=== PATIENT | male | born 1975 | race Caucasian/White ===

== ENCOUNTER 2018-10-11 15:25 | Emergency (ER) | payer OTHER ==
[~2018-10-11] VITALS: Wt 112.1 kg
--- NOTE | 2018-10-11 20:25 | ERD ---
ER Documentation Chief Complaint Chief Complaint hit on head by beanbag: lump noted. no lac. no KO. HPI This is a 43-year-old male who presents emergency department with complaints of head injury. Patient stated this happened around 12 noon at work when a 6 inch and 8 foot metal fell to his head. No loss of consciousness. ROS All systems reviewed and are negative except as per history of present illness. Medications Home Meds Active Scripts Ibuprofen* (Motrin*) 800 Mg Tab, 800 MG PO Q6H PRN for PAIN AND OR ELEVATED TEMP, #30 TAB Prov:SUKHDEEP LARA 10/11/18 Allergies Allergies: Coded Allergies: No Known Allergy (Unverified , 10/11/18) Physical Exam Vitals Vital Signs Date Temp Pulse Resp B/P (MAP) Pulse Ox O2 O2 Flow FiO2 Time Delivery Rate 10/11/18 98.1 65 18 135/77 99 Room Air 21:25 (96) 10/11/18 98.0 68 20 131/81 97 15:49 (98) Physical Exam Const: No acute distress Head: Atraumatic . Lump to the sagittal suture line. Eyes: Normal Conjunctiva ENT: Normal External Ears, Nose and Mouth. Neck: Full range of motion. No meningismus. Resp: Clear to auscultation bilaterally Cardio: Regular rate and rhythm, no murmurs Abd: Soft, non tender, non distended. Normal bowel sounds Skin: No petechiae or rashes Back: No midline or flank tenderness. C-spine is midline with good and full range of motion and has no swelling/bulging. Ext: No cyanosis, or edema Neur: Awake and alert Psych: Normal Mood and Affect Results 24 hrs Current Medications Medications Dose Sig/Marge Start Time Status Last (Trade) Ordered Route PRN Stop Time Admin Dose Reason Admin 1 tab ONCE ONCE 10/11/18 DC 10/11/18 Acetaminophen PO 21:30 21:26 / 10/11/18 21:30 Hydrocodone Bitart ([place] ()) Procedures/MDM Diagnostic tests: CT of the brain: 1. No acute intracranial hemorrhage, transcortical infarction or mass effect. 2. Left frontal scalp swelling is noted without underlying skull fracture. Treatment: Motrin. Re-evaluation: Denies pain. No neurological deficits. Differential diagnosis I have low suspicion for skull fracture, c-spine fracture, subdural hematoma, epidural hematoma. Final diagnosis: Concussion. Prescription: Motrin. Follow-up with PCP in the next 24-48 hours. Come back here in the emergency department for any new symptoms or any worsening symptoms. All questions and concerns were answered. Patient and family members verbalized understanding and agreed with plan of care. Hemodynamically stable on discharge. Departure Diagnosis: Primary Impression: Head injury Additional Impression: Concussion Condition: Stable Additional Instructions: Follow-up with PCP in the next 24-48 hours. Come back here in the emergency department for any new symptoms or any worsening symptoms. SUKHDEEP LARA Oct 11, 2018 20:25
[2018-10-11] MEDS ORDERED: IBUP800T48 PO (21:18)
[2018-10-11 21:25] VITALS: BP 135/77; PULSE 65; RESP 18
[2018-10-11] MEDS ORDERED: HYDROCODONE/APAP (10/325) TAB PO ONE (21:30)
== END 2018-10-11 21:25 | disposition home or self-care (01) ==
LOC: FTE 15:25
DX: S06.0X0A Concussion without loss of consciousness, initial encounter (principal); W22.8XXA Striking against or struck by other objects, initial encounter; Y92.9 Unspecified place or not applicable
CPT/HCPCS: 70450; Z7502; Z7610